=== PATIENT | male | born 1960 | race Caucasian/White ===

== ENCOUNTER 2017-04-16 20:59 | Emergency (ER) | payer OTHER ==
[~2017-04-16] VITALS: Ht 170.2 cm; Wt 93.6 kg
[~2017-04-16 20:59] MED LIST: ALLO100T PO; AMLO5TAB4 PO; GEMF600T60 PO; GLIP-95 PO; HYDR-762 PO; HYDR25TA6 PO; HYDR50TA3 PO; LISI40TA9 PO; NAPR-260 PO; OMEP20CA16 PO; SITA1TAB7 PO
[2017-04-16 21:02] VITALS: Ht 170.2 cm; Wt 93.6 kg
--- NOTE | 2017-04-17 00:21 | ERD ---
ER Documentation Chief Complaint Chief Complaint body rash x 2 days HPI 56-year-old male patient presents to emergency department for evaluation of a paretic tender red dry rash around his neck, bilateral antecubital spaces, and posterior knees. Patient denies any history of dermatitis, denies any food allergies, drug allergies or environmental allergies. Patient has never had a rash like this in the past. ROS All systems reviewed and are negative except as per history of present illness. Medications Home Meds Active Scripts Naproxen* (Naprosyn*) 500 Mg Tablet, 500 MG PO BID Y for PAIN AND/OR INFLAMMATION, #30 TAB Prov:NICOLASA SANTIAGO MD 06/01/15 Hydrocodone Bit-Acetaminophen* ([place]*) 10-325 Mg Tablet, 1 TAB PO Q6 Y for PAIN , #10 TAB Prov:NICOLASA SANTIAGO MD 06/01/15 Reported Medications Hydrochlorothiazide* (Hydrochlorothiazide*) 25 Mg Tab, 25 MG PO DAILY, #30 TAB 06/01/15 Amlodipine Besylate* (Norvasc*) 5 Mg Tablet, 5 MG PO DAILY, TAB 06/01/15 Omeprazole* (Omeprazole*) 20 Mg Capsule.dr, 20 MG PO DAILY, CAP 12/06/14 Hydrochlorothiazide* (Hydrochlorothiazide*) 50 Mg Tab, 50 MG PO DAILY, TAB 12/06/14 Lisinopril* (Lisinopril*) 40 Mg Tablet, 40 MG PO DAILY, TAB 12/06/14 Sitagliptin Phos-Metformin Hcl (Janumet) 50-1,000 Mg Tablet, 1 TAB PO BID, TAB 12/06/14 Allopurinol* (Allopurinol*) 100 Mg Tablet, 100 MG PO DAILY, TAB 12/06/14 Glipizide* (Glipizide*) 10 Mg Tablet, 10 MG PO AC BREAKFAST, TAB 12/06/14 Gemfibrozil* (Gemfibrozil*) 600 Mg Tablet, 600 MG PO BID, TAB 12/06/14 Allergies Allergies: Coded Allergies: No Known Allergy (Unverified , 04/16/17) PMhx/Soc History of Surgery: Yes (cyst revomal from kidney) Anesthesia Reaction: No Hx Neurological Disorder: No Hx Respiratory Disorders: No Hx Cardiac Disorders: No Hx Psychiatric Problems: No Hx Miscellaneous Medical Probl: Yes (GOUT) Hx Alcohol Use: No Hx Substance Use: No Hx Tobacco Use: No Smoking Status: Never smoker Physical Exam Vitals Vital Signs Date Time Temp Pulse Resp B/P Pulse Ox O2 Delivery O2 Flow Rate FiO2 04/16/17 21:02 97.3 89 20 142/68 97 Vitals stable, triage notes reviewed Physical Exam Const: Well-nourished, well-appearing, 56-year-old male patient in no acute distress Eyes: Normal Conjunctiva, EOMI, no periorbital edema ENT: Normal External Ears, Nose and Mouth tongue swelling, no lip swelling Skin: Red excoriated dry erythremic rash around neck, antecubital spaces, and posterior knees. Skin is intact there is no evidence of secondary infection, no scratch urrutia, no dermographism. Neur: Awake and alert Psych: Normal Mood and Affect Procedures/MDM This 56-year-old male patient presents to emergency department for evaluation a acute onset pruritic rash around neck, antecubital spaces, and posterior knees. Patient has no prior history of rashes, denies any food allergy, medication allergy, environmental allergies, denies any sensitivity to soaps, denies new products. Patient reports periodically he will have right lower eyelid swelling , emergency room course includes history and physical exam, physical exam findings are consistent with a contact dermatitis versus eczema, plan to treat with betamethasone dipropionate topical 0.05% apply sparingly to the affected area once a day, use Aquaphor to skin at night and as needed, change soap to Dove soap, discontinue routine skin products until followed up with primary care physician. Patient also instructed to start a Claritin 10 mg 1 tab p.o. daily. Patient is stable with no new complaints during ER course, clinically there is no current evidence to suggest phylactic shock, angioedema, Hunt- Isaiah syndrome or any other emergent condition appearing to require further evaluation or hospitalization. I feel the patient is stable for discharge at this time. I have discussed results, examination findings, the treatment plan with the patient and family present prior to discharge. Indications for emergent reevaluation, side effects of medication were also discussed. All questions were answered. Patient verbalizes understanding and agrees with plan of care. Departure Diagnosis: Primary Impression: Dermatitis Condition: Good Patient Instructions: Atopic Dermatitis (Eczema), Contact Dermatitis [facility] Additional Instructions: Thank you for for coming to [facility] for your care today. Please ask your nurse or provider if you have questions about your care today and do not leave until all your questions have been answered. Please use any medications given as directed and follow-up with your doctor (or the doctor you were referred to) in the next 2-3 days. If you do not have a primary care doctor you may follow up at the [facility] (listed below). You may also use motrin and tylenol as needed for fever and/or pain unless instructed otherwise by your provider or nurse. Indications for more urgent follow-up have been discussed, but you may return to the Emergency Department at ANY time for any worrisome or worsening symptoms. If you have abdominal pain, please know that no test or exam you received is perfect and you should follow up within 8 hours for continued pain. If you had any imaging studies today, such as an X-Ray or CT Scan, these studies will be reviewed later by a radiologist. You will be called if there are important findings that were not identified today, so make sure the contact information you provided at registration is correct. If you received any narcotic pain control medicine today, such as Vicodin, Morphine or Dilaudid, your coordination and judgment may be affected for a number of hours. Please do not drive or operate heavy machinery, and you may want someone to assist you at home. If you were given a prescription for narcotic medication, be aware that it is very addictive- use sparingly and only if necessary. AARON LOUIS Apr 17, 2017 00:21
[2017-04-17] MEDS ORDERED: LORA10CA PO (00:22)
[2017-04-17] MEDS ORDERED: BTM.05O15 TOP (00:22)
== END 2017-04-17 00:47 | disposition home or self-care (01) ==
LOC: FTE 20:59
DX: L30.9 Dermatitis, unspecified (principal); Z79.84 Long term (current) use of oral hypoglycemic drugs
CPT/HCPCS: 99283

== ENCOUNTER 2018-07-21 09:32 | Emergency (ER) | payer MEDICAID, OTHER ==
[~2018-07-21] VITALS: Ht 175.3 cm; Wt 100.0 kg
[~2018-07-21 09:32] MED LIST changes: +BTM.05O15 TOP; -GEMF600T60 PO; +GEMF600T8 PO; -GLIP-95 PO; +GLIP10TA14 PO; +LISI40TA3 PO; -LISI40TA9 PO; +LORA10CA PO; -NAPR-260 PO; +NAPR-985 PO
[2018-07-21 09:39] VITALS: BP 162/80; PULSE 86; RESP 18; Ht 175.3 cm; Wt 100.0 kg
[2018-07-21] MEDS ORDERED: HYDR-3980 PO (10:16)
[2018-07-21] MEDS ORDERED: INDO-39 PO (10:16)
--- NOTE | 2018-07-21 10:20 | ERD ---
ER Documentation Chief Complaint Chief Complaint pt bib self with c/o left foot pain for a few days, unk cause HPI This is a 58-year-old male with a history of gout and is complaining of a gout attack in his left metatarsophalangeal joint #1. He says he had the pain there for 2 days with some mild swelling no fever. He states that he had gout before and that this is the same symptoms he has had in the past no fever no ankle pain no trauma no numbness or weakness ROS All systems reviewed and are negative except as per history of present illness. Medications Home Meds Active Scripts Hydrocodone/Acetaminophen ([place] 10-325 Tablet) 1 Each Tablet, 1 TAB PO Q6H PRN for PAIN, #7 TAB Prov:TOBIOSREESESTOLOS A. DO 07/21/18 Indomethacin* (Indocin*) 50 Mg Cap, 50 MG PO Q6 for pain, #30 CAP Prov:LEKKOSAPOSTOLOS A. DO 07/21/18 Loratadine* (Claritin*) 10 Mg Capsule, 10 MG PO DAILY for 30 Days, #30 CAP Prov:MISSY,AARON 04/17/17 Betamethasone Dipropionate* (Betamethasone Dipropionate*) 0.05% - 15 Gm Oint, 1 APPLIC TOP DAILY for 7 Days, TUB APPLY TO: Prov:MISSY,AARON 04/17/17 Naproxen* (Naprosyn*) 500 Mg Tablet, 500 MG PO BID PRN for PAIN AND/OR INFLAMMATION, #30 TAB Prov:NICOLASA SANTIAGO MD 06/01/15 Hydrocodone Bit-Acetaminophen* ([place]*) 10-325 Mg Tablet, 1 TAB PO Q6 PRN for PAIN, #10 TAB Prov:NICOLASA SANTIAGO MD 06/01/15 Reported Medications Hydrochlorothiazide* (Hydrochlorothiazide*) 25 Mg Tab, 25 MG PO DAILY, #30 TAB 06/01/15 Amlodipine Besylate* (Norvasc*) 5 Mg Tablet, 5 MG PO DAILY, TAB 06/01/15 Omeprazole* (Omeprazole*) 20 Mg Capsule.dr, 20 MG PO DAILY, CAP 12/06/14 Hydrochlorothiazide* (Hydrochlorothiazide*) 50 Mg Tab, 50 MG PO DAILY, TAB 12/06/14 Lisinopril* (Lisinopril*) 40 Mg Tablet, 40 MG PO DAILY, TAB 12/06/14 Sitagliptin Phos-Metformin Hcl (Janumet) 50-1,000 Mg Tablet, 1 TAB PO BID, TAB 12/06/14 Allopurinol* (Allopurinol*) 100 Mg Tablet, 100 MG PO DAILY, TAB 12/06/14 Glipizide* (Glipizide*) 10 Mg Tablet, 10 MG PO AC BREAKFAST, TAB 12/06/14 Gemfibrozil* (Gemfibrozil*) 600 Mg Tablet, 600 MG PO BID, TAB 12/06/14 Allergies Allergies: Coded Allergies: No Known Allergy (Unverified , 04/16/17) PMhx/Soc History of Surgery: Yes (cyst revomal from kidney) Anesthesia Reaction: No Hx Neurological Disorder: No Hx Respiratory Disorders: No Hx Cardiac Disorders: No Hx Psychiatric Problems: No Hx Miscellaneous Medical Probl: Yes (GOUT) Hx Alcohol Use: No Hx Substance Use: No Hx Tobacco Use: No FmHx Family History: No coronary disease Physical Exam Vitals Vital Signs Date Temp Pulse Resp B/P (MAP) Pulse Ox O2 O2 Flow FiO2 Time Delivery Rate 07/21/18 97.3 86 18 162/80 99 09:39 (107) Physical Exam Const: No acute distress Head: Atraumatic Eyes: Normal Conjunctiva ENT: Normal External Ears, Nose and Mouth. Neck: Full range of motion. No meningismus. Resp: Clear to auscultation bilaterally Cardio: Regular rate and rhythm, no murmurs Abd: Soft, non tender, non distended. Normal bowel sounds Skin: No petechiae or rashes Back: No midline or flank tenderness Ext: No cyanosis, or edema, left MTP foot with some tenderness and mild erythema and swelling consistent with gout, full range of motion of joint Neur: Awake and alert Psych: Normal Mood and Affect Procedures/MDM Patient has another gout flareup of his foot. Will treat with some indomethacin and [place] Departure Diagnosis: Primary Impression: Gout Gout site: foot Gout etiology: unspecified cause Chronicity: acute Laterality: left Qualified Codes: M10.9 - Gout, unspecified Condition: Stable Patient Instructions: Gouty Arthritis Referrals: DOCTOR,NOT ON STAFF (PCP) LEX ALFARO DO Jul 21, 2018 10:20
== END 2018-07-21 10:54 | disposition home or self-care (01) ==
LOC: FTE 09:32
DX: M10.9 Gout, unspecified (principal); Z79.84 Long term (current) use of oral hypoglycemic drugs
CPT/HCPCS: 99283